=== PATIENT | male | born 1975 | race Caucasian/White ===

== ENCOUNTER 2017-03-25 22:58 | Emergency (ER) | payer OTHER ==
[~2017-03-25] VITALS: Ht 177.8 cm; Wt 75.0 kg
[~2017-03-25 22:58] MED LIST changes: -AMPH10TA2 PO; -AMPH30CA3 PO; -VENL150C56 PO
[2017-03-25 23:02] VITALS: TEMP 36.8; Ht 177.8 cm; Wt 75.0 kg
[2017-03-25] MEDS ORDERED: SODIUM CHLORIDE 0.9% 1000ML 1,000 ML IV ONE (23:30)
[2017-03-25] MEDS ORDERED: VENL150C56 PO (23:38)
[2017-03-25] MEDS ORDERED: AMPH10TA2 PO (23:38)
[2017-03-25] MEDS ORDERED: AMPH30CA3 PO (23:38)
[2017-03-25 23:40] LABS: BASO % 0.5 %; BASO ABS # 0.04 K/uL (0-0.2); COMPLETE YES; EOS % 1.8 %; HEMATOCRIT 43.5 % (42-52); IG% 0.1 %; LYMPH % 13.4 %; LYMPH ABS # 1.06 K/uL (1.2-3.4); MEAN CELL VOLUME 88.8 fL (80-100); MEAN CORPUSCULAR HEMOGLOBIN 31.2 pg (25-34); MEAN CORPUSCULAR HGB CONC 35.2 g/dl (32-36); MONO % 7.4 %; NEUT % 76.8 %; PLATELET COUNT 316 K/uL (130-400); WHITE BLOOD COUNT 7.93 K/uL (4.8-10.8)
[2017-03-25 23:45] LABS: ISTAT CREATININE 0.7 mg/dl (0.6-1.3); ISTAT HEMOGLOBIN 15.3 g/dl (14.0-18.0); ISTAT IONIZED CALCIUM 1.09 mmol/l (1.12-1.32)
[2017-03-25 23:59] LABS: BUN/CREATININE RATIO 19.4 (10-20); CREATININE 0.82 mg/dl (0.60-1.40); MAGNESIUM 2.1 mg/dl (1.8-2.4); POTASSIUM 3.6 mmol/L (3.5-5.1)
[2017-03-26] MEDS ORDERED: OPTIRAY 320 IV PRN (00:15)
[2017-03-26 00:59] LABS: URINE APPEARANCE CLEAR (CLEAR); URINE BILIRUBIN NEG (NEG); URINE COLOR YELLOW; URINE NITRITE NEG (NEG); URINE SPECIFIC GRAVITY 1.021 (1.000-1.030); UROBILINOGEN NEG (NEG); ZZURINE CULT IF INDIC CATH NO
[2017-03-26 01:08] LABS: MANUAL MICROSCOPIC REQUIRED? NO; REVIEW REQ? NO
[2017-03-26 01:25] LABS: BENZODIAZEPINE, URINE NEG (NEG); COCAINE,URINE NEG (NEG); PHENCYCLIDINE, URINE NEG (NEG)
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
[2017-03-26 07:18] VITALS: BP 126/79; PULSE 106; O2SAT 100
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
[2017-03-30 11:28] LABS: COD UR NEGATIVE NG/ML (CUTOFF=50); HYDROCOD UR 389 NG/ML (CUTOFF=50); HYDROMOR UR 79 NG/ML (CUTOFF=50); MORPHINE UR NEGATIVE NG/ML (CUTOFF=50); NORHYDROCODONE CONF UR 4070 NG/ML (CUTOFF=50); OXYMORPH UR NEGATIVE NG/ML (CUTOFF=50)
== END 2017-03-26 07:23 | disposition home or self-care (01) ==
LOC: C.EDB 22:59
DX: R51 Headache (principal); M54.2 Cervicalgia; R56.9 Unspecified convulsions; F19.10 Other psychoactive substance abuse, uncomplicated; F17.200 Nicotine dependence, unspecified, uncomplicated; V49.9XXA Car occupant (driver) (passenger) injured in unspecified traffic accident, initial encounter; Z91.14 Patient's other noncompliance with medication regimen

== ENCOUNTER → 2017-03-25 | Outpatient (CLI) | payer OTHER ==
[~2017-03-25] MED LIST: AMPH10TA2 PO; AMPH30CA3 PO; DLN/100 PO; GLUCTAB7 PO; MULT-709 PO; OMG3 PO; SPECTAB PO; VENL150C56 PO
== END | disposition home or self-care (01) ==
LOC: C.LAB 22:33
DX: Z02.83 Encounter for blood-alcohol and blood-drug test (principal)